=== PATIENT | female | born 1950 | race Caucasian/White ===

== ENCOUNTER → 2017-05-15 | Outpatient (CLI) | payer MEDICARE ==
[~2017-05-15] MED LIST: DARVOCET-N 1001 TAB PO; DICYCLOMINE HCL20 MG PO; HCTZ PO; LEVOXYL125 MCG; LISINOPRIL PO; LISINOPRIL-HCTZ1 T14 PO; LOMOTIL TABLET1 TAB PO; SYNTHROID PO; SYNTHROID0.1 MG PO; ZESTORETIC 20-1 EAC1 PO; ZESTORETIC 20/11 TAB PO
--- NOTE | ~2017-05-15 | MY29 ---
[facility] A Service of [facility] RADIOLOGY TEXT RESULTS PATIENT: SILVERIO BE LOCATION: [facility] : [birth year] UNIT #: [id number] AGE: [address]: Karie Evans MD SEX: F ORDER DR: [id number] [facility] [address] [place], [place] [address] [id number] O MR#: [id number] Acc #: [id number] NAME: SILVERIO BE : 1950 SEX: F STUDY DATE/TIME: 05/15/2017 9:17 UNIT: [facility] ROOM: STUDY DESCRIPTION: MY FIDELINA SCREENING W/ CAD BILAT Attending Physician: Karie Evans M.D. Ordering Physician: Karie Evans M.D. Primary Care Physician: Karie Evans M.D. MEDICAL IMAGING REPORT This report is preliminary unless electronic signature is present EXAM Digital screening mammogram, 05/15/2017, [facility]. HISTORY 66-year-old woman no risk elevation. Annual screen. COMPARISON Mammograms date to 10/18/2007 with most recent 05/13/2016. TECHNIQUE Digital imaging of each breast was completed utilizing screening protocol. Review includes FDA-approved CAD device. FINDINGS Breast parenchyma is predominantly fatty replaced. Circumscribed nodules with benign characteristics left subareolar location are stable. I see no suspicious mass. There are no interval occurring microcalcifications and no architectural deformity. IMPRESSION Stable benign mammogram. Annual screening recommended. Patients over the age of 40 are entered into a reminder system with target due date for the next mammogram. A result letter will also be sent to the patient. BIRADS: 2 Benign finding. Dictated by... Nikita Simms M.D. [facility] A Service of [facility] RADIOLOGY TEXT RESULTS PATIENT: SILVERIO BE LOCATION: [facility] : 48 UNIT #: [id number] AGE: [address]: Karie Evans MD SEX: F ORDER DR: THIS IS AN ELECTRONICALLY VERIFIED REPORT Nikita Simms M.D. at 05/17/2017 8:06 AM EMILY/melina TD: 05/15/2017 17:00 JOB #: [id number] MEDICAL IMAGING REPORT Page 1 of 1 COPY
== END | disposition home or self-care (01) ==
LOC: CWCC 08:52
DX: Z12.31 Encounter for screening mammogram for malignant neoplasm of breast (principal)
CPT/HCPCS: G0202

== ENCOUNTER → 2017-06-07 | Day surgery (SDC) | payer MEDICARE ==
--- NOTE | ~2017-06-07 | OR ---
Unit #: [id number] #: [id number] Patient: SILVERIO BE [id number] [address] [place], [place] [address] [id number] O MR#: [id number] NAME: SILVERIO BE ROOM: Date of Procedure: 06/07/2017 Admission Date: 06/07/2017 Surgeon: Fernando Sam M.D. : 1950 Attending Physician: Fernando Sam M.D. Primary Care Physician: Karie Evans M.D. OPERATIVE REPORT JOB NOTE: VERIFY ADT. PRIMARY CARE PHYSICIAN Karie Evans M.D. PREOPERATIVE DIAGNOSIS Colorectal cancer screening in a high-risk patient. The patient has personal history of colonic adenomas as well as family history of colon cancer in her mother and uncle. PROCEDURE PERFORMED Colonoscopy up to cecum and terminal ileum with excellent preparation and good visualization. POSTOPERATIVE DIAGNOSES Completely normal examination up to cecum and terminal ileum. The quality of the prep was excellent. No polyps, diverticula, or hemorrhoids were noted. RECOMMENDATIONS Repeat colonoscopy in 5 years. SEDATION USED MAC. DESCRIPTION OF PROCEDURE Following detailed explanation of the potential risks and complications of a colonoscopy, namely perforation, bleeding, and complications related to sedation, the patient was brought to GI lab and laid in the left lateral decubitus position. A digital rectal examination was performed, which was normal. Lubricated tip of the Olympus video colonoscope was inserted through the anus and advanced under direct vision. The scope was advanced and passed up to sigmoid into descending colon. No diverticula were noticed in this area. The scope tip was then navigated all the way up to cecum with visualization of the ileocecal wall and the appendiceal orifice. Preparation was excellent with good visualization and photodocumentation was obtained. Last several inches of the terminal ileum also visualized after intubation of the ileocecal valve and appeared normal. Successive segments of the colonic mucosa were examined upon withdrawal appeared unremarkable. There being no polyps, mass lesions, AVMs, or diverticula. The patient did not have any hemorrhoids at anal verge. The scope was then withdrawn. The patient returned to recovery Unit #: [id number] #: [id number] Patient: SILVERIO BE [facility]. She tolerated the procedure without any postprocedure complications. Dictated by... Alycia Marie/farhana TD: 06/07/2017 09:08 JOB #: [id number] OPERATIVE REPORT Page 1 of 1 X Fernando Sam MD X PROCEDURE OPERATIVE NOTE
== END | disposition home or self-care (01) ==
LOC: COPS 06:08
DX: Z12.11 Encounter for screening for malignant neoplasm of colon (principal); E11.9 Type 2 diabetes mellitus without complications; I10 Essential (primary) hypertension; E03.9 Hypothyroidism, unspecified; K21.9 Gastro-esophageal reflux disease without esophagitis; Z86.010 Personal history of colon polyps; Z87.19 Personal history of other diseases of the digestive system; Z80.0 Family history of malignant neoplasm of digestive organs; Z79.899 Other long term (current) drug therapy; Z90.710 Acquired absence of both cervix and uterus; Z90.49 Acquired absence of other specified parts of digestive tract; Z98.51 Tubal ligation status
CPT/HCPCS: 82947; J2250